=== PATIENT | female | born 1960 | race Caucasian/White ===

== ENCOUNTER 2019-04-18 12:38 | Day surgery (SDC) | payer OTHER ==
[~2019-04-18] VITALS: Ht 172.7 cm; Wt 81.2 kg
[~2019-04-18 12:38] MED LIST: DEXL60CA3; Mirena1 EACH VG
[2019-04-18] MEDS ORDERED: OMEP20ER (13:04)
[2019-04-18] MEDS ORDERED: TOPI50 (13:04)
[2019-04-18] MEDS ORDERED: FISH OIL-VIT D1 EACH (13:06)
[2019-04-18] MEDS ORDERED: [UNRECOGNIZED DRUG - OTHER] (13:08)
[2019-04-18] MEDS ORDERED: OPTIFLEX-C400 MG (13:09)
[2019-04-18] MEDS ORDERED: GLUC500 (13:10)
== END 2019-04-18 14:00 | disposition home or self-care (01) ==
LOC: ORSCSDS 12:38
PROVIDERS: Internal Medicine Gastroenterology
PROC: 0DB58ZX Excision of Esophagus, Via Natural or Artificial Opening Endoscopic, Diagnostic (ICD-10-PCS; principal; 2019-04-18 13:45)
DX: K22.70 Barrett's esophagus without dysplasia (principal); K44.9 Diaphragmatic hernia without obstruction or gangrene; Z79.899 Other long term (current) drug therapy
CPT/HCPCS: 87081; 88305; J2704; J7120

== ENCOUNTER 2020-08-30 12:48 | Day surgery (SDC) | payer OTHER ==
[~2020-08-30] VITALS: Ht 172.7 cm; Wt 91.6 kg
[~2020-08-30 12:48] MED LIST changes: +FISH OIL-VIT D1 EACH; +GLUC500; +OMEP20ER; +OPTIFLEX-C400 MG; +TOPI50; +[UNRECOGNIZED DRUG - OTHER]
[2020-08-30] MEDS ORDERED: MULTI-VITAMIN1 EAC2 PO (13:24)
--- NOTE | 2020-08-30 14:18 | NUR ---
08/30/20 1418 RAFA MOLINA RECEIVED REPORT FROM JAYY HILLIARD. PT ASSISTED TO BATHROOM AT [address] PLUMMER IS CLOSING IN PROCEDURE PRIOR TO HERS. DENIES NEEDS, CALL LIGHT WITHIN REACH
--- NOTE | 2020-08-30 15:17 | NUR ---
08/30/20 1517 Shanita Coyle 1MG EPI INJECTED IN 300ML NACL FOR IRRIGATION
--- NOTE | 2020-08-30 16:52 | NUR ---
08/30/20 1652 RAFA MOLINA PT UP TO RECLINER WITH/SBA. VSS ON ROOM AIR. PT REPORTS 4/10 PAIN IN LEFT ANKLE. PT MEDICATED WITH IV FENTANTYL PER MD ORDERS AND ORAL TABLET OF PERCOCET 5/325, ONE TAB PER MD ORDERS. PT REPORTS PAIN 3/10. TOLERATING PO INTAKE AND DENIES NAUSEA. IV PATENT. ENGAGED IN DC TEACHING AND ALL QUESTIONS ASKED AND ANSWERED.
== END 2020-08-30 17:07 | disposition home or self-care (01) ==
LOC: ORSCSDS 12:48
PROVIDERS: Podiatrist Foot & Ankle Surgery
PROC: 0LMP0ZZ Reattachment of Left Lower Leg Tendon, Open Approach (ICD-10-PCS; principal; 2020-08-30 14:15)
PROC: 0SBG4ZZ Excision of Left Ankle Joint, Percutaneous Endoscopic Approach (ICD-10-PCS; principal; 2020-08-30 14:15)
PROC: 0MQR0ZZ Repair Left Ankle Bursa and Ligament, Open Approach (ICD-10-PCS; principal; 2020-08-30 14:15)
DX: M25.372 Other instability, left ankle (principal); S93.492A Sprain of other ligament of left ankle, initial encounter; K21.9 Gastro-esophageal reflux disease without esophagitis; Z79.899 Other long term (current) drug therapy
CPT/HCPCS: A9270; C1713; J0171; J0690; J1100; J1885; J2250; J2405; J2704; J3010; J7120

== ENCOUNTER 2021-02-25 07:52 | Day surgery (SDC) | payer OTHER ==
[~2021-02-25] VITALS: Ht 172.7 cm; Wt 89.5 kg
[~2021-02-25 07:52] MED LIST changes: +MULTI-VITAMIN1 EAC2 PO
[2021-02-25] MEDS ORDERED: GABA300 PO (08:24)
--- NOTE | 2021-02-25 08:31 | NUR ---
Ambulatory in Day SurgeryPatient states colon prep results clear. History, Chart, Medications and Allergies reviewed before start of procedure.Lungs clear T/O to Auscultation. Patient confirms NPO status and agrees with scheduled surgery. Patient States Post-Procedure ride home has been arranged.
--- NOTE | 2021-02-25 08:51 | NUR ---
02/25/21 0851 Shanita Eduardo History, Chart, Medications and Allergies reviewed before start of procedure. Patient confirms NPO status and agrees with scheduled surgery. 3-LEAD EKG REVIEWED WITH PHYSICIAN PRIOR TO START OF PROCEDURE. MONITOR INTACT WITH CONTINUOUS PULSE OXIMETRY AND INTERMITTENT BP. PATIENT DETERMINED TO BE ASA APPROPRIATE FOR PROPOFOL SEDATION PRIOR TO START OF PROCEDURE BY DR. DE LA CRUZ.
--- NOTE | 2021-02-25 10:02 | NUR ---
PT FIELDS X 4 p PROCEDURE. DENIES PAIN OR NAUSEA. PT TOLERATES PO FLUIDS AND PUDDING s DIFFICULTY. GIVEN DC INSTRUCTIONS. PT VERBALIZES AN UNDERSTANDING s QUESTIONS. IV DC'D, CATH INTACT AND PRESSURE DRESSING APPLIED. PT DRESSES SELF s ASSISTANCE. GLASSES INTACT. TRANSFERS TO s DIFFICULTY. OTD IN NAD, TAKEN BY THO JACOB.
== END 2021-02-25 12:00 | disposition home or self-care (01) ==
LOC: ORD 07:52 → ORSCMMR 07:52 → ORD 09:00
PROVIDERS: Internal Medicine Gastroenterology
PROC: 0DBL8ZX Excision of Transverse Colon, Via Natural or Artificial Opening Endoscopic, Diagnostic (ICD-10-PCS; principal; 2021-02-25 09:00)
PROC: 0DBP8ZX Excision of Rectum, Via Natural or Artificial Opening Endoscopic, Diagnostic (ICD-10-PCS; principal; 2021-02-25 09:00)
DX: K62.5 Hemorrhage of anus and rectum (principal); K62.89 Other specified diseases of anus and rectum; D12.3 Benign neoplasm of transverse colon; K57.30 Diverticulosis of large intestine without perforation or abscess without bleeding; E66.9 Obesity, unspecified; Z68.30 Body mass index [BMI] 30.0-30.9, adult; Z79.899 Other long term (current) drug therapy
CPT/HCPCS: 88305; J2704; J7120

== ENCOUNTER → 2021-05-23 | Outpatient (CLI) | payer OTHER ==
[~2021-05-23] MED LIST changes: +GABA300 PO
== END | disposition home or self-care (01) ==
LOC: LAB SHORT 08:24
DX: B35.1 Tinea unguium (principal)
CPT/HCPCS: 88305; 88312

== ENCOUNTER 2022-06-27 06:58 | Day surgery (SDC) | payer OTHER ==
[~2022-06-27 06:58] MED LIST changes: +FLUC200 PO; +PREG50 PO
== END 2022-06-27 22:43 | disposition home or self-care (01) ==
DX: K22.70 Barrett's esophagus without dysplasia (principal); K21.9 Gastro-esophageal reflux disease without esophagitis; K44.9 Diaphragmatic hernia without obstruction or gangrene; Z79.899 Other long term (current) drug therapy

== ENCOUNTER → 2022-09-07 | Outpatient (CLI) | payer OTHER ==
[2022-09-07 09:41] LABS: BASOPHILS ABSOLUTE AUTO 0.05 K/mm3 (0.00-0.23); BASOPHILS PERCENT AUTO 1 % (0-2); EOSINOPHILS ABSOLUTE AUTO 0.28 K/mm3 (0.00-0.68); EOSINOPHILS PERCENT AUTO 6 % (0-6); Hematocrit 40.5 % (33.0-51.0); Hemoglobin 13.7 g/dL (11.5-16.0); IMMATURE GRAN ABSOLUTE AUTO 0.01 K/mm3 (0.00-0.10); IMMATURE GRAN PERCENT AUTO 0 % (0-1); LYMPHOCYTES ABSOLUTE AUTO 1.09 K/mm3 (0.84-5.20); LYMPHOCYTES PERCENT AUTO 25 % (21-46); MONOCYTES ABSOLUTE AUTO 0.34 K/mm3 (0.16-1.47); MONOCYTES PERCENT AUTO 8 % (4-13); Mean Corpuscular HGB 31.4 pg (26.0-34.0); Mean Corpuscular HGB Conc 33.8 g/dL (31.5-36.5); Mean Corpuscular Volume 93 fL (80-100); Mean Platelet Volume 8.9 fL (9.1-12.4); NEUTROPHILS ABSOLUTE AUTO 2.64 K/mm3 (1.96-9.15); NEUTROPHILS PERCENT AUTO 60 % (41-73); Platelet Count 239 K/mm3 (150-400); RDW Coefficient Variation 12.6 % (11.7-14.2); RDW Standard Deviation 42.5 fL (35.1-46.3); Red Blood Cell Count 4.37 M/mm3 (3.80-5.20); White Blood Cell Count 4.41 K/mm3 (4.00-11.30)
[2022-09-07 09:45] LABS: Bun/Creatinine Ratio 12.6 (12.0-20.0); Calcium, Blood 9.2 mg/dL (8.5-10.1); Creatinine, Blood 0.87 mg/dL (0.40-1.00); Potassium, Blood 4.3 mmol/L (3.5-5.5)
== END | disposition home or self-care (01) ==
LOC: LAB SHORT 09:35 → LAB 09:35
PROVIDERS: Physician Assistant Surgical
DX: R42 Dizziness and giddiness (principal)
CPT/HCPCS: 80048; 85025

== ENCOUNTER → 2023-05-22 | Outpatient (CLI) | payer OTHER | LOC: LAB 16:31 → LAB SHORT 16:31 | DX: B35.1 Tinea unguium (principal) | CPT/HCPCS: 87220 ==

== ENCOUNTER → 2025-06-29 | Outpatient (CLI) | payer OTHER | END | disposition home or self-care (01) | LOC: LAB 11:58 → LAB SHORT 11:58 | DX: N84.1 Polyp of cervix uteri (principal) | CPT/HCPCS: 88305 ==

== ENCOUNTER → 2025-06-29 | Outpatient (CLI) | payer OTHER | END | disposition home or self-care (01) | LOC: LAB SHORT 10:20 → LAB 10:20 | PROVIDERS: Family Medicine | DX: Z01.419 Encounter for gynecological examination (general) (routine) without abnormal findings (principal) | CPT/HCPCS: 87624; G0145 ==